=== PATIENT | female | born 1945 | race American Indian/Alaskan Native ===

== ENCOUNTER 2016-11-29 20:14 | Emergency (ER) | payer MEDICARE, MEDICAID ==
[2016-11-29] MEDS ORDERED: Benzonatate 100 MG Cap PO ONE (22:54)
[2016-11-29] MEDS ORDERED: Albuterol 0.083% 2.5 MG/3 ML Neb Soln NEB ONE (22:59)
[2016-11-29 23:28] LABS: CHLORIDE,CL 105 mmol/L (101-111); SODIUM,NA 140 mmol/L (135-145)
[2016-11-29 23:39] VITALS: BP 147/58
--- NOTE | 2016-11-29 23:41 | EDM.PDOC ---
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 Headache Pain Score (Numeric/FACES): 6 - Related Data Allergies Allergy/AdvReac Type Severity Reaction Status Date / Time No Known Allergies Allergy Verified 11/29/16 21:00 Home Meds: Home Meds Omeprazole [Omeprazole] 1 tab PO DAILY 01/06/14 [History] Albuterol [IJD: Ventolin HFA] 1 - 2 puff INH ASDIRECTED PRN 04/17/16 [History] Aspirin [Halfprin] 81 mg PO DAILY 04/17/16 [History] Losartan Potassium [Losartan Potassium] 50 mg PO DAILY 04/17/16 [History] Simvastatin [Simvastatin] 10 mg PO DAILY 04/17/16 [History] Past Medical History HEENT History: Reports: Glaucoma Cardiovascular History: Reports: High cholesterol, Hypertension Respiratory History: Reports: COPD Gastrointestinal History: Reports: Diverticulosis, GERD, Hiatal hernia, Other ( see below) Other Gastrointestinal History: KAISER'S ESOPHAGUS Genitourinary History: Reports: None [employer]HTER TYPE ONE History: Reports: Musculoskeletal History: Reports: None Neurological History: Reports: Other (see below) Other Neuro History: HX OF BALDERRAMA'S PALSY Psychiatric History: Reports: None Endocrine/Metabolic History: Reports: Diabetes, type II, Hyperthyroidism, Obesity/BMI 30+ Hematologic History: Reports: None Immunologic History: Reports: None Oncologic (Cancer) History: Reports: None Dermatologic History: Reports: None - Infectious Disease History Infectious Disease History: Other Infectious Disease History: DOES NOT RECALL INFECTIOUS HISTORY - Past Surgical History Head Surgeries/Procedures: Reports: None HEENT Surgical History: Reports: Cataract surgery Cardiovascular Surgical History: Reports: None Respiratory Surgical History: Reports: None GI Surgical History: Reports: Colonoscopy, EGD Female Surgical History: Reports: None Endocrine Surgical History: Reports: None Neurological Surgical History: Reports: None Musculoskeletal Surgical History: Reports: Other (see below) Other Musculoskeletal Surgeries/Procedures:: March, surgery to right foot "Bone under right foot removed" per pt Oncologic Surgical History: Reports: None Dermatological Surgical History: Reports: None Social & Family History - Tobacco Use Smoking Status *Q: Current Every Day Smoker Years of Tobacco use: 57 Packs/Tins Daily: 3 Used Tobacco, but Quit: No Second Hand Smoke Exposure: Yes - Caffeine Use Caffeine Use: Reports: Coffee, Soda, Tea - Alcohol Use Days Per Week of Alcohol Use: 0 - Recreational Drug Use Recreational Drug Use: No Drug Use in Last 12 Months: No ED ROS GENERAL - Review of Systems Review Of Systems: See Below Constitutional: Reports: fever, chills, malaise HEENT: Reports: No symptoms, Throat pain (from cough) Respiratory: Reports: shortness of breath (no change from usual), cough. Denies : sputum Cardiovascular: Reports: No symptoms GI/Abdominal: Reports: No symptoms Musculoskeletal: Reports: no symptoms Skin: Reports: no symptoms Neurological: Reports: no symptoms ED EXAM, GENERAL - Physical Exam Exam: See Below Exam Limited By: No limitations General Appearance: alert, mild distress Eye Exam: bilateral eye: EOMI Ear Exam: bilateral ear: TM normal Nose: normal inspection Throat/Mouth: Normal inspection Head: atraumatic, normocephalic Neck: normal inspection Respiratory/Chest: no respiratory distress, decreased breath sounds, splinting ( holding right lower ribs with cough), other (ocassional non productive cough) GI/Abdominal: normal bowel sounds Rectal (Female) Exam: Normal Exam Extremities: normal inspection Course - Vital Signs Last Recorded V/S: Last Vital Signs Temp 97.2 F 11/29/16 23:38 Pulse 93 11/29/16 23:38 Resp 17 11/29/16 23:38 BP 147/58 H 11/29/16 23:38 Pulse Ox 100 11/29/16 23:38 - Orders/Labs/Meds Orders: Active Orders 24 hr Category Date Time Status RT Aerosol Therapy [RC] ASDIRECTED Care 11/29/16 22:59 Active CULTURE STREP A CONFIRMATION [] Stat Lab 11/29/16 21:07 Results STREP SCRN A RAPID W CULT CONF [] Stat Lab 11/29/16 21:07 Results Labs: Laboratory Tests 11/29/16 11/29/16 11/29/16 Range/Units 23:00 23:00 23:00 WBC 6.3 (5.0-10.0) 10^3/uL RBC 4.41 (4.2-5.4) 10^6/uL Hgb 13.5 (12.0-16.0) g/dL Hct 41.1 (37.0-47.0) % MCV 93.2 (80-100) fL MCH 30.6 (27.0-34.0) pg MCHC 32.8 L (33.0-35.0) g/dL Plt Count 159 (150-450) 10^3/uL Neut % (Auto) 56.5 (42.2-75.2) % Lymph % (Auto) 28.3 (20.5-50.1) % [place] % (Auto) 13.0 H (2-8) % Eos % (Auto) 1.9 (1.0-3.0) % Baso % (Auto) 0.3 (0.0-1.0) % Sodium 140 (135-145) mmol/L Potassium 4.4 (3.6-5.0) mmol/L Chloride 105 (101-111) mmol/L Carbon Dioxide 25.0 (21.0-31.0) mmol/L Anion Gap 14.4 BUN 10 (7-18) mg/dL Creatinine 0.9 (0.6-1.3) mg/dL Est Cr Clr Drug Dosing TNP Estimated GFR (MDRD) > 60 BUN/Creatinine Ratio 11.11 Glucose 170 H (74-105) mg/dL Lactic Acid 1.5 (0.5-2.2) mmol/L Calcium 9.1 (8.4-10.2) mg/dl Total Bilirubin 0.3 (0.2-1.0) mg/dL AST 20 (10-42) IU/L ALT 17 (10-60) IU/L Alkaline Phosphatase 71 (42-121) IU/L Total Protein 6.8 (6.7-8.2) g/dl Albumin 4.1 (3.2-5.5) g/dl Globulin 2.7 Albumin/Globulin Ratio 1.52 Acetaminophen /06/09 Range/Units 23:00 WBC (5.0-10.0) 10^3/uL RBC (4.2-5.4) 10^6/uL Hgb (12.0-16.0) g/dL Hct (37.0-47.0) % MCV (80-100) fL MCH (27.0-34.0) pg MCHC (33.0-35.0) g/dL Plt Count (150-450) 10^3/uL Neut % (Auto) (42.2-75.2) % Lymph % (Auto) (20.5-50.1) % [place] % (Auto) (2-8) % Eos % (Auto) (1.0-3.0) % Baso % (Auto) (0.0-1.0) % Sodium (135-145) mmol/L Potassium (3.6-5.0) mmol/L Chloride (101-111) mmol/L Carbon Dioxide (21.0-31.0) mmol/L Anion Gap BUN (7-18) mg/dL Creatinine (0.6-1.3) mg/dL Est Cr Clr Drug Dosing Estimated GFR (MDRD) BUN/Creatinine Ratio Glucose (74-105) mg/dL Lactic Acid (0.5-2.2) mmol/L Calcium (8.4-10.2) mg/dl Total Bilirubin (0.2-1.0) mg/dL AST (10-42) IU/L ALT (10-60) IU/L Alkaline Phosphatase (42-121) IU/L Total Protein (6.7-8.2) g/dl Albumin (3.2-5.5) g/dl Globulin Albumin/Globulin Ratio Acetaminophen < 10 Meds: Medications Discontinued Medications Generic Name Dose Route Start Last Admin Trade Name Freq PRN Reason Stop Dose Admin Albuterol 2.5 mg 11/29/16 22:59 11/29/16 23:26 Proventil Neb Soln NEB 11/29/16 23:00 2.5 mg ONETIME ONE Administration Benzonatate 100 mg 11/29/16 22:54 11/29/16 23:26 Tessalon Perles PO 11/29/16 22:55 100 mg ONETIME ONE Administration Departure - Departure Time of Disposition: 23:49 Disposition: Home, Self-Care 01 Condition: fair Clinical Impression: Pneumonia Instructions: Acute Bronchitis Referrals: Kerry Boogie MD [Primary Care Provider] - Forms: ED Department Discharge Additional Instructions: robitussin one teaspoon every 4 hours as needed for cough alternate tylenol and ibuprofen for fever chills albuterol inhaler 2 puffs every 4 hours as needed tessalon pearles 200mg one every 8 hours as needed Rx #12 - My Orders Last 24 Hours: My Active Orders 11/29/16 21:07 CULTURE STREP A CONFIRMATION [RM] Stat STREP SCRN A RAPID W CULT CONF [] Stat 11/29/16 22:59 RT Aerosol Therapy [RC] ASDIRECTED - Assessment/Plan Last 24 Hours: My Active Orders 11/29/16 21:07 CULTURE STREP A CONFIRMATION [RM] Stat STREP SCRN A RAPID W CULT CONF [] Stat 11/29/16 22:59 RT Aerosol Therapy [RC] ASDIRECTED
== END 2016-11-30 00:11 | disposition home or self-care (01) ==
LOC: DL.ED 20:14
DX: J18.9 Pneumonia, unspecified organism (principal); E78.00 Pure hypercholesterolemia, unspecified; I10 Essential (primary) hypertension; J44.9 Chronic obstructive pulmonary disease, unspecified; K21.9 Gastro-esophageal reflux disease without esophagitis; E11.9 Type 2 diabetes mellitus without complications; E05.90 Thyrotoxicosis, unspecified without thyrotoxic crisis or storm; E66.9 Obesity, unspecified; F17.210 Nicotine dependence, cigarettes, uncomplicated; Z79.82 Long term (current) use of aspirin; Z79.899 Other long term (current) drug therapy; Z98.49 Cataract extraction status, unspecified eye
CPT/HCPCS: 36415; 71020; 80053; 83605; 85025; 87081; 87430; 87804; 94640; 99284; A9270; G0480; J7620; 99283

== ENCOUNTER 2017-06-11 05:32 | Day surgery (SDC) | payer MEDICARE, MEDICAID ==
[2017-06-11] MEDS ORDERED: Midazolam 1 MG/ML 2 ML SDV IV ONE ×3 (05:33→06:33)
[2017-06-11] MEDS ORDERED: fentaNYL 100 MCG/2 ML SDV IV ONE ×3 (05:33→06:32)
[2017-06-11] MEDS ORDERED: Dextrose 5%-0.45% NaCl 1,000 ML IV SCH (06:00)
[2017-06-11] MEDS ORDERED: Sodium Chloride 0.9% 10 ML Syringe FLUSH PRN (06:00)
[2017-06-11] MEDS ORDERED: fentaNYL 100 MCG/2 ML SDV ONE (06:20)
[2017-06-11] MEDS ORDERED: Midazolam 1 MG/ML 2 ML SDV ONE (06:20)
--- NOTE | 2017-06-11 07:19 | OR ---
DATE: 06/11/2017 PROCEDURES: Esophagogastroduodenoscopy, NBI and multiple pinch biopsies. INSTRUMENT USED: GIF-H180 Olympus video panendoscope. PREMEDICATIONS: No oral topical anesthesia used. Fentanyl 100 mcg intravenous, Versed 1.5 mg intravenous. Nasal 2 L O2 cannula. The procedure was done under pulse oximetry, BP recording, and monitor car operator. INDICATION: The patient with known Levine esophagus. Surveillance esophagogastroduodenoscopy is for detection of any active erosive lesions, dysplasia and/or malignancy also under consideration, H. pylori status to be determined if indicated, endoscopic hemostasis therapy if needed. DESCRIPTION OF PROCEDURE: The scope was passed with ease. Adequate visualization of the esophagus was made from proximal to distal areas. No upper esophageal lesions were identified. No distal esophageal stricture. No uphill or downhill esophageal varices. No Karena-Mensah tear. No evidence of erosive esophagitis by [place] criteria. No esophageal polyp or tumor mass identified. Sliding hiatal hernia was noted. [place], proximally encroaching columnar epithelium was noted at around 34 cm distal to the oral verge. Four quadrant biopsies were taken at 2 cm distance apart from the pink columnar epithelium and sent for any histopathologic evidence of dysplasia. NBI views were obtained. No proximal gastric varices noted. Gastric fundus examination by retroflexion showed no polypoid lesions. No gastric ulcer, malignant mass, or vascular ectasia identified. Scattered gastric antral erosions were noted without bleeding from them. Duodenal bulb showed no ulcer. Visualized second part of the duodenum was unremarkable. Multiple pinch biopsies were taken from the gastric antrum and proximal body and sent for PyloriTek test for H. pylori and histopathology. No bleeding was noted from any of the visualized areas at the completion of examination. Photographs were taken of the duodenal bulb, gastric antrum, fundus, and distal esophagus. IMPRESSION: 1. Gastric antral erosions. 2. Levine esophagus. 3. Sliding hiatal hernia. The patient tolerated the procedure well. [facility] /[id number] MTDDana
[2017-06-11 09:25] VITALS: BP 121/59
== END 2017-06-11 08:50 | disposition home or self-care (01) ==
LOC: DL.ENDO 05:32
PROVIDERS: ATTEND Internal Medicine Gastroenterology
DX: K25.9 Gastric ulcer, unspecified as acute or chronic, without hemorrhage or perforation (principal); K22.70 Barrett's esophagus without dysplasia; K44.9 Diaphragmatic hernia without obstruction or gangrene; I10 Essential (primary) hypertension; E11.9 Type 2 diabetes mellitus without complications; E66.9 Obesity, unspecified; E78.00 Pure hypercholesterolemia, unspecified; K21.9 Gastro-esophageal reflux disease without esophagitis; Z72.0 Tobacco use
CPT/HCPCS: 43239; 87077; J7042; 88305; J2250; J3010

== ENCOUNTER 2020-05-25 06:21 | Day surgery (SDC) | payer MEDICARE, MEDICAID ==
[2020-05-25] MEDS ORDERED: fentaNYL 100 MCG/2 ML SDV IV ONE ×3 (06:22→07:31)
[2020-05-25] MEDS ORDERED: Midazolam 1 MG/ML 2 ML SDV IV ONE ×3 (06:22→07:32)
[2020-05-25] MEDS ORDERED: Sodium Chloride 0.9% 10 ML Syringe FLUSH PRN (06:23)
[2020-05-25] MEDS ORDERED: Dextrose 5%-0.45% NaCl 1,000 ML IV SCH (06:30)
[2020-05-25] MEDS ORDERED: fentaNYL 100 MCG/2 ML SDV ONE (06:46)
[2020-05-25] MEDS ORDERED: Midazolam 1 MG/ML 2 ML SDV ONE (06:46)
[2020-05-25 09:39] VITALS: BP 159/61; PULSE 77
--- NOTE | 2020-05-25 14:27 | OR ---
DATE: 05/25/2020 PROCEDURE: Esophagogastroduodenoscopy, NBI and magnification views and biopsies. INSTRUMENT USED: GIF-HQ190 Olympus video panendoscope. PREMEDICATIONS: No oral or topical anesthesia used. Fentanyl 100 mcg intravenous, Versed 2 mg intravenous. Nasal O2 cannula. The procedure was done under pulse oximetry, BP recording, and monitoring analyst. INDICATION: The patient with known Levine's esophagus. Surveillance esophagogastroduodenoscopy is performed for detection of any active erosive lesions, dysplasia and/or malignancy also under consideration, endoscopic hemostasis therapy if needed. DESCRIPTION OF PROCEDURE: The scope was passed with ease. Adequate visualization of the esophagus was made from proximal to distal areas. No upper esophageal lesions identified. No distal esophageal stricture. No uphill or downhill esophageal varices. No Karena-Mensah tear. No evidence of erosive esophagitis by [place] criteria. No esophageal polyp or tumor mass identified. [place] columnar epithelium was noted at around 35 cm distal to the oral verge, magnification views including NBI views were obtained. Photographs were taken. Four-quadrant biopsies were taken at 2 cm distance apart from the area; 35, 37, and 39 cm distal to the oral verge and sent for any histopathologic evidence of dysplasia. No proximal gastric varices noted. Gastric fundus examination by retroflexion showed no polypoid lesions. No gastric ulcer, malignant mass, or vascular ectasia identified. Duodenal bulb showed no ulcer. Visualized second part of the duodenum was unremarkable. No bleeding was noted from any of the visualized areas at the completion of examination. Photographs were taken of the duodenal bulb, gastric antrum, fundus, and distal esophagus. IMPRESSION: Levine esophagus. The patient tolerated the procedure well. [facility] /[id number]
== END 2020-05-25 09:50 | disposition home or self-care (01) ==
LOC: DL.ENDO 06:21
PROVIDERS: ATTEND Internal Medicine Gastroenterology
DX: K22.70 Barrett's esophagus without dysplasia (principal); K21.0 Gastro-esophageal reflux disease with esophagitis; K29.00 Acute gastritis without bleeding; K29.50 Unspecified chronic gastritis without bleeding; I11.9 Hypertensive heart disease without heart failure; E66.09 Other obesity due to excess calories; E11.9 Type 2 diabetes mellitus without complications; E78.00 Pure hypercholesterolemia, unspecified; K57.90 Diverticulosis of intestine, part unspecified, without perforation or abscess without bleeding; I77.89 Other specified disorders of arteries and arterioles; J84.9 Interstitial pulmonary disease, unspecified; E05.90 Thyrotoxicosis, unspecified without thyrotoxic crisis or storm; Z91.14 Patient's other noncompliance with medication regimen; Z98.890 Other specified postprocedural states; Z68.32 Body mass index [BMI] 32.0-32.9, adult
CPT/HCPCS: J2250; J3010; J7042

== ENCOUNTER 2022-05-07 18:33 | Emergency (ER) | payer MEDICARE, MEDICAID ==
[2022-05-07] MEDS ORDERED: Lidocaine 2% Viscous Solution 15 ML UD PO ONE (18:34)
[2022-05-07] MEDS ORDERED: Amoxicillin 500 MG Cap PO ONE (18:34)
[2022-05-07 19:03] VITALS: BP 154/62; PULSE 51
[2022-05-07] MEDS ORDERED: Lidocaine 2% Viscous Solution 15 ML UD ONE (20:21)
[2022-05-07] MEDS ORDERED: Amoxicillin 500 MG Cap ONE (20:21)
== END 2022-05-07 20:41 | disposition home or self-care (01) ==
LOC: DL.ED 18:33
DX: K04.7 Periapical abscess without sinus (principal); K02.9 Dental caries, unspecified; E78.00 Pure hypercholesterolemia, unspecified; I10 Essential (primary) hypertension; J44.9 Chronic obstructive pulmonary disease, unspecified; E11.9 Type 2 diabetes mellitus without complications; E03.9 Hypothyroidism, unspecified; F17.210 Nicotine dependence, cigarettes, uncomplicated; Z79.899 Other long term (current) drug therapy; Z79.82 Long term (current) use of aspirin
CPT/HCPCS: 93010; 99282; 99284; A9270

== ENCOUNTER 2023-03-06 16:33 | Emergency (ER) | payer MEDICARE, MEDICAID ==
[2023-03-06] MEDS ORDERED: Dexamethasone 4 MG/ML SDV IVPUSH ONE (16:50)
[2023-03-06] MEDS ORDERED: Dexamethasone 4 MG/ML SDV IM ONE (16:58)
[2023-03-06 17:07] VITALS: BP 143/66; PULSE 86
== END 2023-03-06 17:11 | disposition home or self-care (01) ==
LOC: DL.ED 16:33
DX: M54.6 Pain in thoracic spine (principal); E78.00 Pure hypercholesterolemia, unspecified; I10 Essential (primary) hypertension; J44.9 Chronic obstructive pulmonary disease, unspecified; K21.9 Gastro-esophageal reflux disease without esophagitis; E66.9 Obesity, unspecified; E11.39 Type 2 diabetes mellitus with other diabetic ophthalmic complication; H42 Glaucoma in diseases classified elsewhere; Z79.899 Other long term (current) drug therapy; Z79.82 Long term (current) use of aspirin; Z79.84 Long term (current) use of oral hypoglycemic drugs; Z68.29 Body mass index [BMI] 29.0-29.9, adult
CPT/HCPCS: 96372; 99283; J1100

== ENCOUNTER 2024-06-21 20:19 | Emergency (ER) | payer MEDICARE, MEDICAID ==
[2024-06-21 21:42] VITALS: BP 178/69; PULSE 89
== END 2024-06-21 23:37 | disposition left against medical advice (07) ==
LOC: DL.ED 20:19
DX: Z53.21 Procedure and treatment not carried out due to patient leaving prior to being seen by health care provider (principal)

== ENCOUNTER 2024-10-24 21:13 | Emergency (ER) | payer MEDICARE, MEDICAID ==
[2024-10-24] MEDS: Fluorescein 1 MG Ophth Strip EYELF ONE (21:49)
[2024-10-24] MEDS: Tetracaine HCl/PF 0.5% 4 ML Bottle EYELF ONE (21:49)
[2024-10-24] MEDS: Sodium Chloride 0.9% Irrigation 500 ML Container IRR ONE (22:19)
[2024-10-24] MEDS: Erythromycin Base 0.5% Ophth Oint 3.5 GM Tube EYELF ONE (22:33)
[2024-10-24 22:48] VITALS: BP 174/70; PULSE 91
== END 2024-10-24 22:38 | disposition home or self-care (01) ==
LOC: DL.ED 21:13
DX: S05.02XA Injury of conjunctiva and corneal abrasion without foreign body, left eye, initial encounter (principal); I10 Essential (primary) hypertension; E78.00 Pure hypercholesterolemia, unspecified; J44.9 Chronic obstructive pulmonary disease, unspecified; K21.9 Gastro-esophageal reflux disease without esophagitis; E11.9 Type 2 diabetes mellitus without complications; E03.9 Hypothyroidism, unspecified; Z79.51 Long term (current) use of inhaled steroids; Z79.82 Long term (current) use of aspirin; Z79.84 Long term (current) use of oral hypoglycemic drugs; Z79.899 Other long term (current) drug therapy; W50.4XXA Accidental scratch by another person, initial encounter
CPT/HCPCS: 99283; A9270-GY; J1596; J3490

== ENCOUNTER 2025-04-13 05:51 | Day surgery (SDC) | payer MEDICARE, MEDICAID ==
[2025-04-13] MEDS ORDERED: Propofol 200 MG/20 ML SDV ONE (06:12)
[2025-04-13] MEDS: Lactated Ringers 1,000 ML IV SCH (06:30)
[2025-04-13 08:17] VITALS: BP 148/48; PULSE 73
== END 2025-04-13 09:00 | disposition home or self-care (01) ==
LOC: DL.ENDO 05:51
PROVIDERS: ATTEND Internal Medicine Gastroenterology
DX: K22.70 Barrett's esophagus without dysplasia (principal); K20.0 Eosinophilic esophagitis; K21.9 Gastro-esophageal reflux disease without esophagitis; K44.9 Diaphragmatic hernia without obstruction or gangrene; E11.9 Type 2 diabetes mellitus without complications; F17.210 Nicotine dependence, cigarettes, uncomplicated; Z79.84 Long term (current) use of oral hypoglycemic drugs; Z79.899 Other long term (current) drug therapy
CPT/HCPCS: 43239; 82947; 88305; J7120

== ENCOUNTER 2025-04-25 23:42 | Emergency (ER) | payer MEDICARE, MEDICAID ==
[2025-04-26] VITALS: BP 183/72; PULSE 95
[2025-04-26] MEDS: Ondansetron 4 MG/2 ML SDV IVPUSH ONE (00:19)
[2025-04-26 00:31] LABS: BASOPHILS PERCENT AUTO 0.1 % (0.0-1.0); EOSINOPHILS PERCENT AUTO 0.1 % (1.0-3.0); LYMPHOCYTES PERCENT AUTO 10.3 % (20.5-50.1); MONOCYTES PERCENT AUTO 7.6 % (2-8); NEUTROPHILS PERCENT AUTO 81.9 % (42.2-75.2); PLATELET COUNT,PLT 195 10^3/uL (150-450); RED BLOOD CELL COUNT 4.53 10^6/uL (4.2-5.4); WHITE BLOOD CELL COUNT,WBC 8.0 10^3/uL (5.0-10.0)
[2025-04-26 00:53] LABS: A/G RATIO 1.4; ALANINE AMINOTRANSFERASE,ALT 18.0 U/L (14-59); ASPARTATE AMNIOTRANSFERASE,AST 19.0 U/L (15-37); BILIRUBIN TOTAL 0.8 mg/dL (0.2-1.0); BLOOD UREA NITROGEN,BUN 6.0 mg/dL (7-18); CARBON DIOXIDE,CO2 22.0 mmol/L (21-32); CHLORIDE,CL 80.0 mmol/L (98-107); CREATININE 0.59 mg/dL (0.55-1.02); EST CRCL DRUG DOSING (CG) 54.63 mL/min; GLUCOSE RANDOM 108.0 mg/dL (70-99); LACTIC ACID 0.9 mmol/L (0.4-2.0); POTASSIUM,K 3.8 mmol/L (3.5-5.1); PROTEIN TOTAL,TP 7.4 g/dL (6.4-8.2)
[2025-04-26 00:54] LABS: ESTIMATED GFR 91.0 mL/min (>=60); SODIUM,NA 113.0 mmol/L (136-145)
[2025-04-26 01:40] LABS: BLOOD UREA NITROGEN,BUN 6.0 mg/dL (7-18); CARBON DIOXIDE,CO2 22.0 mmol/L (21-32); CHLORIDE,CL 84.0 mmol/L (98-107); CREATININE 0.62 mg/dL (0.55-1.02); EST CRCL DRUG DOSING (CG) 51.98 mL/min; GLUCOSE RANDOM 94.0 mg/dL (70-99); POTASSIUM,K 4.0 mmol/L (3.5-5.1)
[2025-04-26 01:44] LABS: ESTIMATED GFR 90.0 mL/min (>=60); SODIUM,NA 116.0 mmol/L (136-145)
== END 2025-04-26 02:16 ==
LOC: DL.ED 23:42
DX: R11.2 Nausea with vomiting, unspecified (principal); E87.1 Hypo-osmolality and hyponatremia; R91.1 Solitary pulmonary nodule; I10 Essential (primary) hypertension; E78.00 Pure hypercholesterolemia, unspecified; J44.9 Chronic obstructive pulmonary disease, unspecified; E11.9 Type 2 diabetes mellitus without complications; E03.9 Hypothyroidism, unspecified; F17.210 Nicotine dependence, cigarettes, uncomplicated; Z79.51 Long term (current) use of inhaled steroids; Z79.899 Other long term (current) drug therapy
CPT/HCPCS: 36415; 71045; 80048; 80053; 83605; 83690; 83735; 84484; 85025; 87040; 93005; 96361; 96374; 99285; J2405; J7030

== ENCOUNTER 2025-07-06 16:16 | Emergency (ER) | payer MEDICARE, MEDICAID ==
[2025-07-06 16:51] LABS: BASOPHILS PERCENT AUTO 0.7 % (0.0-1.0); EOSINOPHILS PERCENT AUTO 1.8 % (1.0-3.0); LYMPHOCYTES PERCENT AUTO 17.8 % (20.5-50.1); MONOCYTES PERCENT AUTO 10.3 % (2-8); NEUTROPHILS PERCENT AUTO 69.4 % (42.2-75.2); PLATELET COUNT,PLT 257 10^3/uL (150-450); RED BLOOD CELL COUNT 3.91 10^6/uL (4.2-5.4); WHITE BLOOD CELL COUNT,WBC 9.6 10^3/uL (5.0-10.0)
[2025-07-06 17:12] LABS: A/G RATIO 1.2; ALANINE AMINOTRANSFERASE,ALT 19.0 U/L (14-59); ASPARTATE AMNIOTRANSFERASE,AST 11.0 U/L (15-37); BILIRUBIN TOTAL 0.3 mg/dL (0.2-1.0); BLOOD UREA NITROGEN,BUN 12.0 mg/dL (7-18); CARBON DIOXIDE,CO2 24.0 mmol/L (21-32); CHLORIDE,CL 98.0 mmol/L (98-107); CREATININE 0.85 mg/dL (0.55-1.02); EST CRCL DRUG DOSING (CG) 41.75 mL/min; GLUCOSE RANDOM 109.0 mg/dL (70-99); POTASSIUM,K 3.8 mmol/L (3.5-5.1); PROTEIN TOTAL,TP 6.9 g/dL (6.4-8.2); SODIUM,NA 131.0 mmol/L (136-145)
[2025-07-06 17:18] LABS: ESTIMATED GFR 69.0 mL/min (>=60)
[2025-07-06 17:39] VITALS: BP 129/59; PULSE 84
== END 2025-07-06 17:38 | disposition home or self-care (01) ==
LOC: DL.ED 16:16
DX: N76.2 Acute vulvitis (principal); I10 Essential (primary) hypertension; E78.00 Pure hypercholesterolemia, unspecified; J44.9 Chronic obstructive pulmonary disease, unspecified; K21.9 Gastro-esophageal reflux disease without esophagitis; E11.9 Type 2 diabetes mellitus without complications; M19.90 Unspecified osteoarthritis, unspecified site; Z79.82 Long term (current) use of aspirin; Z79.84 Long term (current) use of oral hypoglycemic drugs; Z79.899 Other long term (current) drug therapy
CPT/HCPCS: 36415; 80053; 83735; 85025; 99283

== ENCOUNTER 2025-08-03 19:49 | Emergency (ER) | payer MEDICARE, MEDICAID ==
[2025-08-03 20:05] VITALS: BP 141/60; PULSE 85
== END 2025-08-03 21:23 | disposition home or self-care (01) ==
LOC: DL.ED 19:49
DX: S80.212A Abrasion, left knee, initial encounter (principal); R07.89 Other chest pain; M25.572 Pain in left ankle and joints of left foot; E78.00 Pure hypercholesterolemia, unspecified; I10 Essential (primary) hypertension; J44.9 Chronic obstructive pulmonary disease, unspecified; K21.9 Gastro-esophageal reflux disease without esophagitis; M19.90 Unspecified osteoarthritis, unspecified site; E11.9 Type 2 diabetes mellitus without complications; F17.200 Nicotine dependence, unspecified, uncomplicated; Z79.51 Long term (current) use of inhaled steroids; Z79.899 Other long term (current) drug therapy; Z79.82 Long term (current) use of aspirin; Z79.84 Long term (current) use of oral hypoglycemic drugs; Z90.89 Acquired absence of other organs; W10.9XXA Fall (on) (from) unspecified stairs and steps, initial encounter
CPT/HCPCS: 71101-LT; 73560-LT; 73600-LT; 99283